=== PATIENT | female | born 1940 | race Caucasian/White ===

== ENCOUNTER 2025-01-30 18:02 | Inpatient (IN) | payer BC ==
[~2025-01-30] VITALS: Ht 152.4 cm; Wt 81.6 kg
--- NOTE | 2025-01-30 18:16 | ELECTROCARDIOGRAPH REPORT ---
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
--- NOTE | 2025-01-30 18:41 | Physician Documentation ---
History of Present Illness Chief Complaint: Abdominal Pain Stated Complaint: UROLOGY Time Seen by MD: 18:07 HPI History is obtained from [facility], record review, patient. This is a very kanwal 85-year-old female who went to the outside facility with a complaint of left flank pain. No obvious trigger or provocation. She has not never experienced this type of pain in the past. It was moderate to severe in its intensity. She did report decreased urine output. Reports fever and chills as well as nausea and vomiting. The particular palliating or aggravating factors. Did not attempt to treat it. She states it medication provided at the outside facility a markedly improved her pain. At the outside facility she was diagnosed with 5 x 6 kidney stone at the left pole infundibulum. Mild dilation of renal pelvis and calyces as well as left ureter at the level of a another 6 mm stone in the distal ureter. Incidental finding of diverticulosis without diverticulitis was noted on that CT. Laboratory studies from the outside facility reviewed. The urine shows too numerous to count white blood cells concerning for pyelonephritis with a infected stone. Metabolic panel from outside facility showed a mild elevation of the creatinine which the RU for this patient at 1.3. Potassium was elevated at 196 concerning for diabetes mellitus. She has a marked leukocytosis of 20.4 with a 90% neutrophilic predominance. Patient was appropriately diagnosed with pyelonephritis with a infected stone and transferred to us for urology consultation. Medication Reconciliation Allergies: Coded Allergies: Penicillins (Verified Allergy, Unknown, 01/30/25) Sulfa (Sulfonamide Antibiotics) (Verified Allergy, Unknown, 01/30/25) diphenhydramine (Verified Allergy, Unknown, HIVES, 01/30/25) lidocaine (Verified Allergy, Unknown, 01/30/25) codeine (Verified Adverse Reaction, Unknown, HEADAHCE, 01/30/25) epinephrine (Verified Adverse Reaction, Unknown, GETS ANXIETY, 01/30/25) Scheduled Atorvastatin Calcium (Atorvastatin Calcium), 1 TAB PO HS, (Reported) Clopidogrel Bisulfate (Clopidogrel), 1 TAB PO DAILY, (Reported) Hydrochlorothiazide (Hydrochlorothiazide), 1 TAB PO DAILY, (Reported) Isosorbide Mononitrate (Isosorbide Mononitrate Er), 0.5 TAB PO DAILY, (Reported) Losartan Potassium (Losartan Potassium), 1 TAB PO HS, (Reported) Metoprolol Succinate (Metoprolol Succinate), 1 TAB PO DAILY, (Reported) Review of Systems ROS 10 point review of systems was performed and unless noted above in HPI is negative for acute process/complaint. Physical Exam Vital Signs: Temperature: 98.1, Source: Oral, Heart Rate: 107, Respiratory Rate: 15, BP: 134/76, Pulse Oximetry: 97, Weight: 81.600 Physical Exam GENERAL: Awake, alert, oriented, GCS 15, no apparent distress, non-toxic appearing, answers questions, follows commands appropriately. Examined in bed 1. Immediately upon arrival HEENT: Atraumatic, normocephalic, pupils equal, extraocular muscles intact, sclerae anicteric, mucus membranes moist, oropharynx is clear, no stridor. NECK: supple, full active range of motion, trachea midline, no thyromegaly, no l ymphadenopathy, no JVD. CARDIOVASCULAR: Tachycardic and regular rate/rhythm, no murmurs/gallops/rubs, Pulses are 2+ in all extremities and symmetric. Capillary refill less than 2 seconds. PULMONARY: Nonlabored, good air movement ,no respiratory distress, speaking in full sentences, clear to auscultation bilaterally, no wheezing, no ronchi, no rales, no accessory muscle use. GASTROINTESTINAL: Soft, non-tender, non-distended, normal active bowel sounds, no organomegaly, no pulsatile masses, no CVA tenderness. NEUROLOGIC: Lucid with normal mental status. Normal facial symmetry. Moves all extremities symmetrically and with purpose. No truncal ataxia. Speech is fluid without evidence of dysarthria or aphasia, no focal deficits appreciated. MUSCULOSKELETAL: There is full range of motion of all extremities. There is no joint pain or joint swelling or joint erythema. There is no muscle pain or tenderness or swelling. EXTREMITIES: warm, well-perfused, no cyanosis, no clubbing, no edema, no acute deformities. Skin: warm, dry, no rashes or lesions, no jaundice, no petechiae orpurpura. No ecchymosis. PSYCHIATRIC: Normal affect, normal insight, normal concentration. Focused exam: [] Sepsis Screening Cardiology Exam: normal peripheral pulses, tachycardia Peripheral Pulses: 2+ radial (R), 2+ radial (L), 2+ dorsalis pedis (R), 2+ dorsalis pedis (L) Extremities: slow capillary refill Skin Color: Normal Progress Results/Orders Results/Orders Vital Signs 01/30/25 18:06 Temp 98.1 Pulse 107 Resp 15 B/P (MAP) 134/76 Pulse Ox 97 Medical Decision Making Findings Facility Status: ED Holds, RME process The plan was discussed with the patient, who demonstrates clear understanding of the plan and is in agreement with the plan unless otherwise noted in the chart. All questions have been answered, all concerns were addressed unless otherwise documented. I was available throughout their ED stay for frequent reassessment and question s. Differential Diagnoses (considered and possible or likely): [Differential for left flank pain obviously includes urinary tract infection, pyelitis, pyelonephritis, infected stone, emphysematous pyelonephritis, kidney stone without infection. Based on patient's presentation and workup at the outside facility infected stone with a pyelonephritis and sepsis are at the top of the differential making a diagnosis] ??Differential Diagnoses (considered and unlikely, not requiring evaluation currently): [Clinically no evidence of acute intra-abdominal process requiring surgical intervention] MDM Data Please see [facility] for the following: Independent Historians and external Records Review. Historian: [Patient] Independent Historians: ?[[facility], record review] Medication Management: [Reviewed medication list] Social History and determinants: [Reviewed] Please see the body of the note for the following: Any independent interpretations of ECG, imaging studies. All vitals signs/haemodynamics, ordered tests were independently reviewed and interpreted by myself. Nursing triage complaint and vitals reviewed, additional nursing notes were reviewed as available and I agree unless otherwise noted or documented in contradiction in the chart Vital Signs: Independently reviewed Labs: Independently interpreted Imaging: Independently interpreted Old Medical Records: Independently reviewed, see [facility] for relevant summary and information Pulse Oximetry: [96%] interpreted as [normal on room air] by me [Film Archivist: Tachycardic Rate, Regular rhythm, no ectopy, sinus tachycardia reviewed and interpreted by me] Additionally notably showing: [Hemodynamically stable but does meet sepsis criteria based laboratory workup at the outside facility.] Tests considered but not ordered include: [Does not require repeat imaging] Social Determinants of Health Impact: Patient was evaluated in [facility] [place] to healthcare due to below par ratio of patient to medical providers. [] Comorbid Conditions Impacting Present Evaluation and Care/Treatment: [None reported by the patient] Management Discussions with other Healthcare Providers: [Hospitalist regarding admission] Treatment and Disposition Medication Management (Given or considered): [Antibiotics has been considerably with verified with the outside facility that she received a dose of ceftriaxone]. See EMR for details Consideration for Hospitalization/Escalation/Deescalation of Care: Admission for observation has been considered, and is necessary for further management of her infected stone and urology consultation ?ED Course:?[No clinical deterioration while in the emergency department] ?Shared decision making:?[] Code status:? Do not intubate, do not resuscitate, selective treatment Please see the full Electronic Medical Record for full details of nursing doc umentation, medications list, other records of complete past medical history and conditions, vital signs, laboratory studies, and any radiologic study interpretations by radiologists. Portions of this note were completed using [employer] dictation software and as a result there may exist minor errors in spelling. I have reviewed elements of past family and social history and agree as included in note. Departure Disposition: ADMITTED INPATIENT Impression: Primary Impression: Acute pyelonephritis Additional Impressions: Left renal stone Sepsis Referrals: NO PRIMARY CARE PROVIDER (PCP) Signature Scribe Signature: No scribe Attestation: This note accurately reflects clinical decisions, work performed by myself, DO KIERSTEN Crane NICHOLAS M DO Jan 30, 2025 18:41
[2025-01-30 19:01] LABS: BASOPHILS % (AUTO) 0.1 % (0-1); EOSINOPHILS % (AUTO) 0 % (0-6); HEMOGLOBIN 14.9 g/dl (12.0-16.0); LYMPHOCYTES # (AUTO) 0.2 X10'3 (1.1-4.8); LYMPHOCYTES % (AUTO) 3.1 % (21-51); MEAN CORPUSCULAR HEMOGLOBIN 29.8 PG (27.0-31.0); MEAN CORPUSCULAR HGB CONC 33.8 g/dL (33.0-36.5); MEAN CORPUSCULAR VOLUME 88.1 FL (78-98); MEAN PLATELET VOLUME 9.1 FL (7.4-10.4); MONOCYTES # (AUTO) 0.1 X10'3 (0-0.9); MONOCYTES % (AUTO) 1.5 % (2-12); NEUTROPHILS # (AUTO) 7.7 X10'3 (1.8-7.7); NEUTROPHILS % (AUTO) 95.3 % (42-75); PLATELET COUNT 192 X10'3 (140-440); RED BLOOD COUNT 4.99 X10'6 (4.20-5.60); RED CELL DISTRIBUTION WIDTH 13.5 % (11.5-14.5)
[2025-01-30 19:28] LABS: ALANINE AMINOTRANSFERASE 15 U/L (12-78); ALBUMIN 3.3 G/DL (3.4-5.0); ALKALINE PHOSPHATASE 100 IU/L (46-116); ANION GAP 14 (8-16); ASPARTATE AMINO TRANSFERASE 20 U/L (10-37); BILIRUBIN,TOTAL 0.9 MG/DL (0.1-1.0); BLOOD UREA NITROGEN 25 MG/DL (7-18); BUN/CREATININE RATIO 14.7 (10.0-20.0); C-REACTIVE PROTEIN 10.13 MG/DL (0.0-0.5); CALCIUM 10.4 MG/DL (8.5-10.1); CHLORIDE 99 MMOL/L (99-107); GLUCOSE 133 MG/DL (70-104); MAGNESIUM 1.6 MG/DL (1.5-2.4); PHOSPHORUS 2.2 MG/DL (2.3-4.5); POTASSIUM 3.1 MMOL/L (3.5-5.1); SODIUM 136 MMOL/L (135-145); TOTAL CARBON DIOXIDE 23.2 MMOL/L (24-32); TOTAL PROTEIN 6.6 G/DL (6.4-8.2); eCRCL 18 ML/MIN; eGFR 29 ML/MIN
[2025-01-30] MEDS ORDERED: acetaminophen 325mg tablet PO PRN (19:45)
[2025-01-30] MEDS ORDERED: ondansetron/PF 4mg/2ml inj IV PRN (19:45)
[2025-01-30] MEDS ORDERED: magnesium hydroxide 30ml (MOM) UD suspension PO PRN (19:45)
[2025-01-30] MEDS ORDERED: mag hydrox/Alum hydrox/simeth 30ml oral suspension PO PRN (19:45)
[2025-01-30] MEDS ORDERED: magnesium sulf-water 4G/100mL 100 ML IV PRN (19:45)
[2025-01-30] MEDS ORDERED: potassium Cl 40MEQ/1/2NS 520ml 520 ML IV PRN (19:45)
[2025-01-30] MEDS ORDERED: magnesium Cl slow-release 64mg tablet PO PRN (19:45)
[2025-01-30] MEDS ORDERED: potassium Cl 20 mEq SR tablet PO PRN (19:45)
[2025-01-30] MEDS ORDERED: morphine 2 MG/ML inj. syringe IV PRN (19:45)
[2025-01-30] MEDS ORDERED: HYDROmorphone inj. 0.5 MG/0.5 ML DISP.SYRIN IV PRN (19:45)
[2025-01-30] MEDS ORDERED: HYDROcodone/acetaminophen 5mg/325mg tablet PO PRN (19:45)
[2025-01-30] MEDS ORDERED: magnesium sulf-water 2g/50mL 50 ML IV PRN (19:45)
[2025-01-30] MEDS: heparin, porcine 5000 units/ml vial SQ SCH (20:00)
[2025-01-30] MEDS: K and/or MAG REPLACEMENT MC SCH (20:00)
[2025-01-30] MEDS: docusate sod 100mg capsule PO SCH (20:00)
[2025-01-30] MEDS: normal saline 1000ml 1,000 ML IV ONE (20:02)
[2025-01-30 20:07] LABS: APTT 26 SECONDS (22-32); INR 1.2 INR; PROTHROMBIN TIME 11.7 SECONDS (9.0-12.0)
--- NOTE | 2025-01-30 20:15 | ELECTROCARDIOGRAPH REPORT ---
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
[2025-01-30] MEDS: CefTRIAXone 2gm/D5W 50ml BAG 50 ML IV SCH (20:50)
[2025-01-30] MEDS: potassium Cl 20 mEq SR tablet PO PRN (20:53)
--- NOTE | 2025-01-30 21:17 | RADIOLOGY REPORT ---
Procedure: CT CT [facility] Study Date and Requested Time: 01/30/2025 08:32 PM History: Word-finding difficulties, history of stroke Comparison: None Dose: CTDI: 61.12 mGy DLP: 1091.84 mGycm Technique: Multiplanar images obtained through the brain without intravenous contrast. Findings: Normal brain volume and formation. Moderate to severe chronic small vessel ischemic changes. No hemorrhages, masses, mass effect, midline shift, herniation or cytotoxic edema following a large v ascular territory. No intra-axial or extra-axial fluid collections. No evidence of hydrocephalus. The basal cisterns are patent. The pituitary gland, sella and parasellar regions are unremarkable. The cerebellar tonsils are in nor mal position. The cerebellum is unremarkable. The orbits and globes are unremarkable. The paranasal sinuses and mastoids are clear. There are no wo rrisome calvarial lesions. Impression: No evidence of acute intracranial abnormality.
--- NOTE | 2025-01-30 21:17 | RADIOLOGY REPORT ---
CHEST RADIOGRAPH Indication: LEFT NEPHROLITHIASIS WITH PYELONEPHRITIS Technique: Single frontal view of the chest was obtained Comparison: None FINDINGS: Lines and Tubes: None Lungs: No focal consolidation. Line sternotomy wires surgical clips are noted consistent with prior h istory of CABG Pleura: No effusion. No pneumothorax. Cardiomediastinal contours: Unremarkable Bones: No acute osseous abnormality. IMPRESSION: Bronchovascular crowding due to low lung volumes. Otherwise, no evidence for acute cardiopulmonary d isease.
[2025-01-30] MEDS: normal saline 1000ml 1,000 ML IV SCH (21:47)
--- NOTE | 2025-01-30 22:48 | HISTORY AND PHYSICAL-Residence ---
History & Physical Providers to CC Resident Creating Document: RUBÉN ASHTON, CHERISE ~ History of Present Illness Primary Medical Doctor: CECILY Reason for Admit\Complaint: Left lumbar pain,nephrolithiasis ,hydroureteronephrosis,pyelonephritis History of Present Illness She 84-year-old female with past medical history of hypertension, hyperlipidemia, CAD with three stents, status post four vessel CABG presented to the ER from [facility] with the chief complaints of left lumbar pain. Endorses left lumbar pain for the past two days and she felt very weak and she could not able to get off the bed. She endorses weakness for the past couple of days and she was using walker before this episode. She do reports fever associated with chills and rigors. She is in mild confusion. She reports facial weakness. She denied decreased urine output, weakness of limbs, deviation of angle of mouth, slurring of speech, seizures, loss of consciousness. Her machining technician is Dr. Wilmer PEGUERO Code status is DNR. Allergies: Coded Allergies: Penicillins (Verified Allergy, Unknown, 01/30/25) Sulfa (Sulfonamide Antibiotics) (Verified Allergy, Unknown, 01/30/25) diphenhydramine (Verified Allergy, Unknown, HIVES, 01/30/25) lidocaine (Verified Allergy, Unknown, 01/30/25) codeine (Verified Adverse Reaction, Unknown, HEADAHCE, 01/30/25) epinephrine (Verified Adverse Reaction, Unknown, GETS ANXIETY, 01/30/25) Past Medical History Past Medical History Hypertension Hyperlipidemia CAD status post three stent Past Surgical History Surgical History Comment PTCA, three stents Four-vessel CABG Family History Family History: FH: alcoholism FATHER FH: hypertension MOTHER Past Social History Social History Comment Smoking cigarettes 2-3 per day She denied drug use, alcohol Smoking: Cigarettes, Less than 1 pack/day Alcohol Use: None Drug Use: None Lives In: Home ROS All Other Systems: Reviewed and Negative ROS Reviewed in full and negative except positive pertinent as in HPI Exam Vitals: Vital Signs Date Time Temp Pulse Resp B/P (MAP) Pulse Ox O2 Delivery O2 Flow Rate FiO2 01/30/25 22:39 100.0 107 14 127/58 (81) 96 0 General: GENERAL: Awake, alert, oriented, GCS 15, no apparent distress, non-toxic appearing, in mild confusion. Examined in bed 1. HEENT: Atraumatic, normocephalic, pupils equal, extraocular muscles intact, sclerae anicteric, mucus membranes moist, oropharynx is clear, no stridor. NECK: supple, full active range of motion, trachea midline, no thyromegaly, no lymphadenopathy, no JVD. CARDIOVASCULAR: Tachycardic and regular rate/rhythm, no murmurs/gallops/rubs, Pulses are 2+ in all extremities and symmetric. Capillary refill less than 2 seconds. PULMONARY: Nonlabored, good air movement ,no respiratory distress, speaking in full sentences, clear to auscultation bilaterally, no wheezing, no ronchi, no rales, no accessory muscle use. GASTROINTESTINAL: Soft, non-tender, non-distended, normal active bowel sounds, no organomegaly, no pulsatile masses, left CVA tenderness. NEUROLOGIC: Lucid with normal mental status. Normal facial symmetry. Moves all extremities symmetrically and with purpose. No truncal ataxia. Speech is fluid without evidence of dysarthria or aphasia, no focal deficits appreciated. MUSCULOSKELETAL: There is full range of motion of all extremities. There is no joint pain or joint swelling or joint erythema. There is no muscle pain or tenderness or swelling. EXTREMITIES: warm, well-perfused, no cyanosis, no clubbing, no edema, no acute deformities. Skin: warm, dry, no rashes or lesions, no jaundice, no petechiae orpurpura. No ecchymosis. PSYCHIATRIC: Normal affect, normal insight, normal concentration. Diagnostic Data Last Recorded Lab Results: 01/30/25 1842 01/31/25 0533 Diagnostic Data: Laboratory Tests Test 01/30/25 18:42 Prothrombin Time 11.7 SECONDS (9.0-12.0) INR International Normalized Ratio 1.2 INR Activated Partial Thromboplast Time 26 SECONDS (22-32) Coagulation Comments Advance Care Planning Advanced Care planning: Add on additional 30 min Additional Plan Pain abdomen and Acute Hematuria likely 2/2 below Left nephrolithiasis with moderate left hydroureteronephrosis & acute pyelonephritis sepsis, POA likely 2/2 UTI & Acute pyelonephritis Tachycardia and tachypnea is noted CBC is okay Lactic acid is elevated as high as 2.3-2.5 Procalcitonin is elevated 4.71 and C-reactive protein is elevated 10. ESR is 10 Coagulation profile, troponin is normal. Urine analysis at [facility] is showing numerous RBCs, WBCs and positive for leukocyte esterase suggestive of hematuria. Hyaline casts and bacteria is present Received 2 L of IV normal saline and on 100 mL per hour normal saline. Received ceftriaxone at [facility]. We are continuing the ceftriaxone Consult urologist in the a.m. RU Hypokalemia Likely secondary to renal tubular stasis Serum creatinine is 1.7 and pCO2 is 23.2 Replacing potassium per protocol On IV normal saline at the rate of 100 mL/hour CAD status post three stents and status post CABG Hypertension hyperlipidemia Ordered lipid panel Patient is on home medications of atorvastatin 40 mg, clopidogrel 75, hydrochlorothiazide 12.5, isosorbide mononitrate 30, losartan 100, metoprolol 25 Start the patient on previous medication except clopidogrel after medication reconsideration On hydralazine 10 mg q.6 H p.r.n. IV EKG does not showed acute ischemic changes .troponins are negative Code status: DNR Diet: NPO DVT prophylaxis: SCDs PT: Ordered Prognosis: Guarded Date of Service: Jan 30, 2025 Billing Provider: VAL BANERJEE MD Common Visit Codes: 59179-PXTVQEX INP/OBS CARE (HIGH) Assessment/Plan Assessment Apixaban evaluated the patient with the help of residents. Discussed the case with them. Reviewed notes by Dr.Suragani Samuels with his assessments and plans. I also reviewed the patient's records. This included labs, radiology, notes from other providers. No additional points at this time. RUBÉN ASHTON, RES Jan 30, 2025 22:48 VAL BANERJEE MD Jan 31, 2025 06:33
[2025-01-30] MEDS: acetaminophen 1,000mg/100ml IV 100 ML IV ONE (23:09)
[2025-01-30 23:30] VITALS: BP 144/50; PULSE 95; RESP 24; TEMP 98.8; O2SAT 95
[2025-01-31] MEDS ORDERED: ISOS30TA84 PO (00:20)
[2025-01-31] MEDS ORDERED: LOSA100T58 PO (00:20)
[2025-01-31] MEDS ORDERED: HYDR12.55 PO (00:20)
[2025-01-31] MEDS ORDERED: ATOR40TA72 PO (00:20)
[2025-01-31] MEDS ORDERED: METO-395 PO (00:20)
[2025-01-31] MEDS ORDERED: CLOP75TA34 PO (00:20)
[2025-01-31] MEDS: normal saline 1000ml 1,000 ML IV ONE (04:12)
[2025-01-31 06:00] VITALS: BP 132/60; PULSE 82; RESP 14; TEMP 97.4; O2SAT 97
[2025-01-31 06:03] LABS: BILIRUBIN,URINE NEGATIVE (Neg); CLARITY,URINE SLIGHTLY CLOUDY (Clear); COLOR,URINE YELLOW (Yellow); GLUCOSE, URINE NEGATIVE (Neg); KETONES,URINE NEGATIVE (Neg); LEUKOCYTE ESTERASE ,URINE NEGATIVE (Neg); NITRITES, URINE NEGATIVE (Neg); OCCULT BLOOD,URINE TRACE-INTACT (Neg); PROTEIN,URINE TRACE mg/dl (Neg); UROBILINOGEN,URINE 0.2 E.U/dL (0.2-1.0)
[2025-01-31 06:05] LABS: UA COLLECTION TYPE NON-SPECIFIED
[2025-01-31 06:26] LABS: ALANINE AMINOTRANSFERASE 14 U/L (12-78); ALBUMIN 2.5 G/DL (3.4-5.0); ALBUMIN/GLOBULIN RATIO 0.7 (1.1-1.5); ALKALINE PHOSPHATASE 78 IU/L (46-116); ANION GAP 12 (8-16); ASPARTATE AMINO TRANSFERASE 10 U/L (10-37); BILIRUBIN,TOTAL 0.7 MG/DL (0.1-1.0); BLOOD UREA NITROGEN 26 MG/DL (7-18); BUN/CREATININE RATIO 14.2 (10.0-20.0); CALCIUM 8.9 MG/DL (8.5-10.1); CHLORIDE 104 MMOL/L (99-107); CHOL/HDL RATIO 2.9 (0.00-4.99); CHOLESTEROL 133 MG/DL (0-200); CREATININE 1.83 MG/DL (0.40-0.90); GLUCOSE 134 MG/DL (70-104); HDL CHOLESTEROL 46 MG/DL (35-60); LDL CHOLESTEROL 64 MG/DL (50-100); MAGNESIUM 1.6 MG/DL (1.5-2.4); POTASSIUM 3.3 MMOL/L (3.5-5.1); SODIUM 138 MMOL/L (135-145); TOTAL CARBON DIOXIDE 21.6 MMOL/L (24-32); TRIGLYCERIDES 68 MG/DL (20-135); eCRCL 17 ML/MIN; eGFR 26 ML/MIN
[2025-01-31 06:33] LABS: BACTERIA,URINE FEW /HPF (Neg); MUCUS STRANDS FEW /LPF (Neg); SQUAMOUS EPITHELIAL CELL,UR MANY /LPF (FEW)
[2025-01-31 06:59] LABS: BASOPHILS % (AUTO) 0.1 % (0-1); EOSINOPHILS % (AUTO) 0 % (0-6); HEMATOCRIT 38.7 % (35.0-45.0); HEMOGLOBIN 12.9 g/dl (12.0-16.0); LYMPHOCYTES # (AUTO) 0.5 X10'3 (1.1-4.8); LYMPHOCYTES % (AUTO) 2.7 % (21-51); MEAN CORPUSCULAR HEMOGLOBIN 29.6 PG (27.0-31.0); MEAN CORPUSCULAR HGB CONC 33.2 g/dL (33.0-36.5); MEAN CORPUSCULAR VOLUME 88.9 FL (78-98); MEAN PLATELET VOLUME 9.8 FL (7.4-10.4); MONOCYTES # (AUTO) 0.5 X10'3 (0-0.9); MONOCYTES % (AUTO) 2.5 % (2-12); NEUTROPHILS % (AUTO) 94.7 % (42-75); PLATELET COUNT 154 X10'3 (140-440); RED BLOOD COUNT 4.36 X10'6 (4.20-5.60); RED CELL DISTRIBUTION WIDTH 13.7 % (11.5-14.5)
[2025-01-31 08:45] LABS: PRO BRAIN NATRIURETIC PEPTIDE 6713 PG/ML (0-450)
[2025-01-31 10:00] VITALS: BP 154/62; PULSE 101; RESP 20; TEMP 98.2; O2SAT 96
[2025-01-31] MEDS: isosorbide mononitrate 30mg tab.SR.24H PO SCH (10:52)
[2025-01-31] MEDS: metoprolol succinate 25mg (24-HOUR) SR. Tablet PO SCH (10:53)
[2025-01-31] MEDS ORDERED: ringers solution, lacted 1,000 ML IV SCH (12:15)
[2025-01-31 13:38] LABS: BILIRUBIN,URINE NEGATIVE (Neg); CLARITY,URINE CLEAR (Clear); COLOR,URINE YELLOW (Yellow); GLUCOSE, URINE NEGATIVE (Neg); KETONES,URINE NEGATIVE (Neg); LEUKOCYTE ESTERASE ,URINE TRACE (Neg); OCCULT BLOOD,URINE SMALL (Neg); PROTEIN,URINE TRACE mg/dl (Neg); UROBILINOGEN,URINE 0.2 E.U/dL (0.2-1.0)
[2025-01-31 13:49] LABS: NITRITES, URINE NEGATIVE (Neg); UA COLLECTION TYPE NON-SPECIFIED
[2025-01-31 13:50] LABS: BACTERIA,URINE 2+ /HPF (Neg); RBC,URINE 0-2 /HPF (0-2); SQUAMOUS EPITHELIAL CELL,UR FEW /LPF (FEW)
--- NOTE | 2025-01-31 13:51 | PROGRESS NOTE- Residence ---
Progress Note - Resident Providers to CC Resident Creating Document: MACARIO KEYES RES ~ Antibiotic Timeout Antibiotic Ordered?: Yes Subjective Patient was seen at the bedside with her . Patient reported that she has been having the pressure-like intense intermittent pain at her left lower back over a week which is progressive over last two days without having any radiation, she took three tablets of baby aspirin to her pain which were associated with chills and rigors with low-grade fever and nausea or vomiting last two days ago. She do have a history of hemorrhoids but did not see any hematuria. Her PCP is Dr. Irwin Blancas at the [facility]. and her mortgage closer is Dr. Billie alfonso at [place], [place]. She did have her history of cardiac three stents placement in 1996, four vessels CABG in 2018 and another heart attack in 2022. She had 3 times of CVAs in the past. Objective Vital Signs Date Time Temp Pulse Resp B/P (MAP) Pulse Ox O2 Delivery O2 Flow Rate FiO2 01/31/25 10:00 98.2 101 20 154/62 (92) 96 Room Air 01/30/25 22:39 0 Result Diagram: 01/31/2553201/31/25532 Vitals were stable at the moment with temp 98.2 F, RI 100/minute, RR 20/minute, BP 154/62 mm Hg, pulse oximetry 96% on room air. On exam, General: Well alert, well oriented, not confused, not agitated, not in acute distress, well cooperated during the physical. HEENT: Conjunctive are pink, sclerae clear, no icterus, pupil is equal in both sides, reactive to light, no ear discharge, no pharyngeal erythema or an edema, mouth and lips are moist. Neck: Supple, no JVD, no lymphadenopathy and thyromegaly. Lungs:Equal air entry on both lungs, no additional sounds Heart: S1-S2 regular sinus rhythm and, regular rate, no gallops, no rubs, no murmurs Abdomen: NO bilateral CVA tenderness, No visible peristalsis, Bowel sounds present on auscultation, soft, nontender, no guarding, no rigidity Extremities: No obvious deformities, no pitting edema bilaterally, capillary refill intact, able to wiggle toes both sides, peripheral pulsations are intact on both sides ASSISTANT PROFESSOR OF EDUCATION: No focal neurological deficits, no motor and sensory weakness in all 4 extremities, could move all 4 extremities Musculoskeletal: No joint swelling, deformities, inflammations, and no scoliosis and back tenderness Skin: No active skin lesions and rashes Coagulation Studies Laboratory Tests Test 01/30/25 18:42 Prothrombin Time 11.7 SECONDS (9.0-12.0) INR International Normalized Ratio 1.2 INR Activated Partial Thromboplast Time 26 SECONDS (22-32) Coagulation Comments Assessment Assessment An 84 years old female who was transferred from [facility] for further management of left kidney stone with moderate left hydronephrosis and acute pyelonephritis complicated to sepsis with PMH of CAD s/p 3 stents, CABG x 4, CVA x 3 times, HTN, HLD. Plan Plan # Infected left renal calculus with 6 mm left distal ureter stone # Mild left hydronephrosis # acute pyelonephritis # sepsis- POA from the above -CT AP was done at the [facility], stable vitals -was given total 2L of IV NS and continue IV maintaince fluid -Continue IV ABx Ceftriaxone - day2 -Consulted with Oncall Urologist Dr Lopez and plan to place a stent tomorrow at 7:30 am -continue monitoring stone passing -pain control -started to continue PO Flomax 0.4 mg HS -repeated LA to f/up until two normal -negative blood culture less than 24 hours to follow up # RU mostly from pre renal tubular stasis # ultralight imbalance-hypokalemia -no baseline to be compared with -Hyaline cast in UA -Daily I's and O's monitoring -Daily CMP -Continue IV NS 75 ml/ hr -replace potassium electrolytes as needed as per protocol # Hx of CVA # Hx of CAD, s/p CABG x 4 and 3 stents # HTN # HLD # Class 2 obesity, BMI 35.1 -non specific elevation of proBNP with 6713, and no active s/s of acute CHF exacerbation -WNL lipid profiles -Med rec was done and reveiwed and continued appropriately -increased PO Losartan to 100 from 50 for better HTN control CODE STATUS: DNR DVT prophylaxis: Sc heparin Analgesia/sedation: Morphine/Dilaudid Lines/tubes: Peripheral IV GI prophylaxis: None Nutrition: Heart healthy Prognosis: Guarded Disposition: stent placement by Dr Lopez tomorrow at 7:30 am and NPO after midnight, Continue medical management including IV fluids, IV antibiotics, follow up with Urology for further management plan, PT eval and DC plan. Resident MD attestation: Patient was seen, examined and discussed with attending MD, Dr. Anastacio KEYES MD Internal Medicine Resident, PGY2 [facility] Date of Service: Jan 31, 2025 Billing Provider: MIKEL DOZIER MD, TIN, RES Jan 31, 2025 13:51
[2025-01-31 18:00] VITALS: BP 131/61; PULSE 91; RESP 18; TEMP 99.7; O2SAT 96
--- NOTE | 2025-01-31 19:18 | CONSULTATION ---
DATE OF CONSULTATION: 01/31/2025 DICTATING PHYSICIAN: Wing Lopez MD HISTORY OF PRESENT ILLNESS: An 84-year-old female who was admitted and transferred from [facility] with a diagnosis of left distal ureteral stone with pyelonephritis. She has no prior history of stones. She had fever and chills, as well as nausea and vomiting and presented herself to [facility]. CT scan was performed by report, which is not available to my review, but is revealing for a 6 mm calculus in the left distal ureter, causing left hydroureteronephrosis as well as a 6 mm calculus in the lower pole infundibulum on the left. No other stones in the urinary tract. I was asked to consult for an infected distal ureteral stone. PAST SURGICAL HISTORY: A 4-vessel CABG and 3 cardiac stents. PAST MEDICAL HISTORY: Coronary artery disease, elevated cholesterol, hypertension, and nephrolithiasis. ALLERGIES: PENICILLIN, SULFA, DIPHENHYDRAMINE, LIDOCAINE, CODEINE, EPINEPHRINE ____. MEDICATIONS: Metoprolol, losartan, isosorbide, hydrochlorothiazide, Plavix, and atorvastatin. SOCIAL HISTORY: Noncontributory. REVIEW OF SYSTEMS: 10-point review of systems negative except for HPI. PHYSICAL EXAMINATION: VITAL SIGNS: Blood pressure is 134/76, respirations 15, heart rate 107, temperature 98.1. GENERAL: She is in minimal distress, but has been medicated by the time I see her. LABORATORY DATA: White count is 19,000. BUN and creatinine are 26 and 1.83. Her lactic acid was initially 2.5 and that has not been rechecked. IMAGING STUDIES: CT scan is as per HPI. ASSESSMENT: Pain, leukocytosis, and pyuria secondary to left distal ureteral calculus with presumed infection behind the stone. Decompression indicated. PLAN: N.p.o. after midnight. Surgical decompression to consist of cystoscopy, left retrograde pyelogram, and left ureteral stent placement. Informed consent obtained. Risks, alternatives, benefits, and complications discussed. The patient understands and wishes to proceed. She further understands that her stones will need to be taken care of at a future date following resolution of her pyelonephritis. Wing Lopez MD TID: [id number] RECEIPT: [id number] MARLENY/KAYLYN/GARY
[2025-01-31 20:00] VITALS: RESP 16; O2SAT 99
[2025-01-31] MEDS: tamsulosin 0.4mg capsule PO SCH (21:17)
[2025-01-31] MEDS: atorvastatin 20mg tablet PO SCH (21:18)
[2025-01-31] MEDS: losartan 50mg tablet PO SCH (21:18)
[2025-01-31 22:00] VITALS: BP 147/79; PULSE 97; RESP 16; TEMP 98.4; O2SAT 94
[2025-02-01] VITALS (22 sets, daily range): BP systolic 117–180; BP diastolic 46–95; PULSE 62–93; RESP 14–18; TEMP 96.1–98.6; O2SAT 89–98
[2025-02-01 05:48] LABS: BASOPHILS % (AUTO) 0.1 % (0-1); EOSINOPHILS # (AUTO) 0.2 X10'3 (0-0.9); HEMATOCRIT 36.2 % (35.0-45.0); HEMOGLOBIN 12.4 g/dl (12.0-16.0); LYMPHOCYTES # (AUTO) 0.5 X10'3 (1.1-4.8); LYMPHOCYTES % (AUTO) 3.5 % (21-51); MEAN CORPUSCULAR HEMOGLOBIN 30.4 PG (27.0-31.0); MEAN CORPUSCULAR HGB CONC 34.3 g/dL (33.0-36.5); MEAN CORPUSCULAR VOLUME 88.7 FL (78-98); MEAN PLATELET VOLUME 9.9 FL (7.4-10.4); MONOCYTES # (AUTO) 0.8 X10'3 (0-0.9); NEUTROPHILS # (AUTO) 13.8 X10'3 (1.8-7.7); NEUTROPHILS % (AUTO) 90.4 % (42-75); PLATELET COUNT 118 X10'3 (140-440); RED BLOOD COUNT 4.08 X10'6 (4.20-5.60); WHITE BLOOD COUNT 15.3 X10'3 (4.5-11.0)
[2025-02-01 05:56] LABS: ALANINE AMINOTRANSFERASE 12 U/L (12-78); ALBUMIN 2.1 G/DL (3.4-5.0); ALBUMIN/GLOBULIN RATIO 0.7 (1.1-1.5); ALKALINE PHOSPHATASE 78 IU/L (46-116); ANION GAP 10 (8-16); ASPARTATE AMINO TRANSFERASE 14 U/L (10-37); BILIRUBIN,TOTAL 0.3 MG/DL (0.1-1.0); BLOOD UREA NITROGEN 36 MG/DL (7-18); BUN/CREATININE RATIO 23.5 (10.0-20.0); CALCIUM 9.1 MG/DL (8.5-10.1); CHLORIDE 109 MMOL/L (99-107); CREATININE 1.53 MG/DL (0.40-0.90); GLUCOSE 107 MG/DL (70-104); MAGNESIUM 1.7 MG/DL (1.5-2.4); POTASSIUM 3.5 MMOL/L (3.5-5.1); SODIUM 140 MMOL/L (135-145); TOTAL CARBON DIOXIDE 21.2 MMOL/L (24-32); eCRCL 20 ML/MIN; eGFR 32 ML/MIN
[2025-02-01] MEDS ORDERED: iohexol 300 MG/1 ML 50ml polymer ONE (06:44)
[2025-02-01] MEDS ORDERED: labetalol 20mg/4ml (5mg/ml) syringe IV PRN (07:15)
[2025-02-01] MEDS ORDERED: ondansetron/PF 4mg/2ml inj IV PRN (07:15)
[2025-02-01] MEDS ORDERED: morphine 4 MG/ML inj SYRINge IV PRN (07:15)
[2025-02-01] MEDS ORDERED: hydrALAZINE 20mg/ml inj. IV PRN (07:15)
[2025-02-01] MEDS ORDERED: proCHLORperazine 10 MG/2 ml inj IV PRN (07:15)
[2025-02-01] MEDS ORDERED: acetaminophen 1,000mg/100ml IV 100 ML IV PRN (07:15)
[2025-02-01] MEDS ORDERED: HYDROmorphone/PF 0.2 MG/ML SYRINGE IV PRN ×2 (07:15)
[2025-02-01] MEDS ORDERED: morphine 2 MG/ML inj. syringe IV PRN (07:15)
[2025-02-01] MEDS ORDERED: sevoflurane 250ml liquid IH ONE (07:30)
[2025-02-01] MEDS ORDERED: fentaNYL/PF 50MCG/1 ML 2ML syringe ONE (07:50)
[2025-02-01] MEDS ORDERED: midazolam 1 mg/ML 2ml injection ONE (08:04)
[2025-02-01] MEDS ORDERED: dexamethasone sod phosphate 4mg/ml inj. ONE (08:04)
[2025-02-01] MEDS ORDERED: ondansetron/PF 4mg/2ml inj ONE (08:04)
[2025-02-01] MEDS ORDERED: propofol inj 20 ML IV ONE (08:04)
--- NOTE | 2025-02-01 08:23 | POSTOPERATIVE RECORDS ---
Postoperative Records Providers to CC ~ Date of Procedure: Feb 01, 2025 Problems: (1) Obstructive pyelonephritis (2) Left ureteral stone Post-Operative Diagnosis SAME as PRE-Op Procedure Performed cystoscopy, left RPG and stone manipulation and stent placement, right RPG Surgeon: Jessica Schaeffer none Anesthesiologist: Heidi Mathews Type of Anesthesia: General Findings: dictated Complications none Prosthetics\Implants used: stent Estimated Blood Loss: none Specimen Removed: none Description of Procedure: dictated JEROME AVILES MD Feb 01, 2025 08:23
--- NOTE | 2025-02-01 08:57 | OPERATIVE REPORT ---
DATE OF SURGERY: 02/01/2025 DICTATING PHYSICIAN: Wing Lopez MD PREOPERATIVE DIAGNOSES: Left ureteral stone and renal stone with obstructing pyelonephritis. POSTOPERATIVE DIAGNOSES: Left ureteral stone and renal stone with obstructing pyelonephritis. OPERATIONS PERFORMED: * Cystoscopy. * Left retrograde pyelogram and stone manipulation. * Left ureteral stent placement. * Right retrograde pyelogram. SURGEON: Wing Lopez MD. ANESTHESIOLOGIST: Dr. Mathews. ANESTHESIA: General INDICATIONS: An 84-year-old female admitted in transfer from [facility] with a report of a left distal ureteral stone with pyelonephritis. She also had significant leukocytosis with a white count of 19,000 and dirty colored urine. Her CT scan was not available to my review, but was revealing for a 6 mm calculus in the left distal ureter as well as a 6 mm calculus in the left kidney. She was recommended to undergo decompression for presumed obstructing pyelonephritis. DESCRIPTION OF PROCEDURE: After obtaining informed consent, the patient was taken to the operating room and general anesthesia was induced. I then placed the patient into dorsal lithotomy position. The genitals were prepped and draped in the usual fashion. The cystoscope was placed into the bladder and surveillance was performed. There was particulate matter in the bladder as well as very cloudy urine. There was a 1-cm whitish structure, which appeared to be mucusy that was in the dependent portion of the bladder, which was irrigated out and was either partial stone or pus. Retrograde pyelogram was then performed on the left and visualization was borderline. The patient had moderate hydronephrosis, however, and in the process of injecting contrast, there was a perception that the stone moved approximately 2 cm up into the proximal ureter. It was elected to leave a stent. A 6-Divehi x 26 cm double-J stent was advanced following placement of a guidewire coiled into the pyelogram. Fluoroscopy revealed good ____ in the kidney and bladder seen fluoroscopically and cystoscopically respectively. Pressure on the kidney revealed transport of pussy urine compatible with relief of obstruction of an infected system and confirmed that we were on the correct side as well. To be sure, a right retrograde pyelogram was performed, which was normal to my view. The bladder was drained. The procedure was completed. The patient awakened from general anesthesia having tolerated the procedure well. The patient will be scheduled for elective retrieval of her stones following resolution of her infected stone. COMPLICATIONS: None. Wing Lopez MD TID: [id number] RECEIPT: [id number] MARLENY/ADILSON
--- NOTE | 2025-02-01 15:09 | PROGRESS NOTE- Residence ---
Progress Note - Resident Providers to CC Resident Creating Document: MACARIO KEYES RES ~ Antibiotic Timeout Antibiotic Ordered?: Yes Subjective pt was lying on her bed comfortable at the immediate post op condition. She was told to have PT today and will prep for discharge tomorrow if PT cleared her. She is not having serious pain at that moment. She just had Stent placement by Dr Lopez. Objective Vital Signs Date Time Temp Pulse Resp B/P (MAP) Pulse Ox O2 Delivery O2 Flow Rate FiO2 02/01/25 10:35 Room Air 0.0 02/01/25 10:15 97.5 80 16 146/62 (90) 91 Result Diagram: 02/01/25 0506 02/01/25 0506 Vitals were stable. On exam, General: Well alert, well oriented, not confused, not agitated, not in acute distress, well cooperated during the physical. HEENT: Conjunctive are pink, sclerae clear, no icterus, pupil is equal in both sides, reactive to light, no ear discharge, no pharyngeal erythema or an edema, mouth and lips are moist. Neck: Supple, no JVD, no lymphadenopathy and thyromegaly. 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, no motor and sensory weakness in all 4 extremities, could move all 4 extremities Musculoskeletal: No joint swelling, deformities, inflammations, and no scoliosis and back tenderness Skin: No active skin lesions and rashes Coagulation Studies Laboratory Tests Test 01/30/25 18:42 Prothrombin Time 11.7 SECONDS (9.0-12.0) INR International Normalized Ratio 1.2 INR Activated Partial Thromboplast Time 26 SECONDS (22-32) Coagulation Comments Assessment Assessment An 84 years old female who was transferred from [facility] for further management of left kidney stone with moderate left hydronephrosis and acute pyelonephritis complicated to sepsis with PMH of CAD s/p 3 stents, CABG x 4, CVA x 3 times, HTN, HLD. Plan Plan # S/p left ureteral stent placement for Infected left renal calculus with 6 mm left distal ureter stone # Mild left hydronephrosis # acute pyelonephritis # sepsis- POA from the above - resolved 02/01/2025: Dr. Swanson performed the cystoscopy, left retrograde pyelogram, left urethral stent placement today -vitals were stable, without complications -monitor I's and O's, possible hematuria -pain control -neutrophilic leukocytosis trending down on continuing IV antibiotics ceftriaxone day three 01/31/2025:-CT AP was done at the [facility], stable vitals -was given total 2L of IV NS and continue IV maintenance fluid -Continue IV ABx Ceftriaxone - day2 -Consulted with Oncall Urologist Dr Lopez and plan to place a stent tomorrow at 7:30 am -continue monitoring stone passing -pain control -started to continue PO Flomax 0.4 mg HS -repeated LA to f/up until two normal -negative blood culture less than 24 hours to follow up # RU mostly from pre renal tubular stasis # electrolytes imbalance-hypokalemia 02/01/2025: Gradually trending down to her baseline on admission, continue monitoring -continue IV fluid until she can resume her oral 01/31/2025:-no baseline to be compared with -Hyaline cast in UA -Daily I's and O's monitoring -Daily CMP -Continue IV NS 75 ml/ hr -replace potassium electrolytes as needed as per protocol # Hx of CVA # Hx of CAD, s/p CABG x 4 and 3 stents # HTN # HLD # Class 2 obesity, BMI 35.1 -non specific elevation of proBNP with 6713, and no active s/s of acute CHF exacerbation -WNL lipid profiles -Med rec was done and reveiwed and continued appropriately -increased PO Losartan to 100 from 50 for better HTN control CODE STATUS: DNR DVT prophylaxis: Sc heparin Analgesia/sedation: Morphine/Dilaudid Lines/tubes: Peripheral IV GI prophylaxis: None Nutrition: Heart healthy Prognosis: Guarded Disposition: Postop care, follow up with Dr. Swanson for further management plan including out patient follow up plan, Continue medical management including IV fluids, IV antibiotics, PT eval and DC tomorrow. Resident MD attestation: Patient was seen, examined and discussed with attending MD, Dr. Anastacio KEYES MD Internal Medicine Resident, PGY2 [facility] Date of Service: Feb 01, 2025 Billing Provider: MIKEL DOZIER MD, TIN, RES Feb 01, 2025 15:09
[2025-02-01] MEDS: ringers solution, lacted 1,000 ML IV SCH (20:11)
[2025-02-02 05:28] LABS: BASOPHILS % (AUTO) 0.1 % (0-1); EOSINOPHILS % (AUTO) 0 % (0-6); HEMOGLOBIN 12.5 g/dl (12.0-16.0); LYMPHOCYTES # (AUTO) 0.6 X10'3 (1.1-4.8); LYMPHOCYTES % (AUTO) 4.7 % (21-51); MEAN CORPUSCULAR HEMOGLOBIN 29.4 PG (27.0-31.0); MEAN CORPUSCULAR HGB CONC 33.7 g/dL (33.0-36.5); MEAN CORPUSCULAR VOLUME 87.4 FL (78-98); MEAN PLATELET VOLUME 9.9 FL (7.4-10.4); MONOCYTES # (AUTO) 0.8 X10'3 (0-0.9); MONOCYTES % (AUTO) 6.3 % (2-12); NEUTROPHILS # (AUTO) 10.8 X10'3 (1.8-7.7); NEUTROPHILS % (AUTO) 88.9 % (42-75); PLATELET COUNT 127 X10'3 (140-440); RED BLOOD COUNT 4.24 X10'6 (4.20-5.60); RED CELL DISTRIBUTION WIDTH 14.2 % (11.5-14.5); WHITE BLOOD COUNT 12.2 X10'3 (4.5-11.0)
[2025-02-02 05:57] LABS: ALANINE AMINOTRANSFERASE 15 U/L (12-78); ALBUMIN 2.1 G/DL (3.4-5.0); ALBUMIN/GLOBULIN RATIO 0.8 (1.1-1.5); ALKALINE PHOSPHATASE 80 IU/L (46-116); ANION GAP 13 (8-16); ASPARTATE AMINO TRANSFERASE 5 U/L (10-37); BILIRUBIN,TOTAL 0.2 MG/DL (0.1-1.0); BLOOD UREA NITROGEN 45 MG/DL (7-18); BUN/CREATININE RATIO 41.3 (10.0-20.0); CALCIUM 8.9 MG/DL (8.5-10.1); CHLORIDE 109 MMOL/L (99-107); CREATININE 1.09 MG/DL (0.40-0.90); GLUCOSE 164 MG/DL (70-104); MAGNESIUM 1.8 MG/DL (1.5-2.4); POTASSIUM 3.8 MMOL/L (3.5-5.1); SODIUM 141 MMOL/L (135-145); TOTAL CARBON DIOXIDE 19.4 MMOL/L (24-32); TOTAL PROTEIN 4.6 G/DL (6.4-8.2); eCRCL 29 ML/MIN; eGFR 48 ML/MIN
[2025-02-02 06:00] VITALS: BP 151/71; PULSE 63; RESP 13; TEMP 98; O2SAT 95
[2025-02-02 07:15] VITALS: BP 154/52; PULSE 83
[2025-02-02 09:41] VITALS: BP 136/64; PULSE 74; RESP 16; TEMP 97.8; O2SAT 94
[2025-02-02] MEDS: amLODIPine 5mg tablet PO SCH (09:42)
[2025-02-02] MEDS ORDERED: LACT1CAP26 PO (12:43)
[2025-02-02] MEDS ORDERED: CEFD300C3 PO (12:43)
--- NOTE | 2025-02-02 12:45 | DISCHARGE SUMMARY-Residence ---
Discharge Summary Providers to CC Resident Creating Document: MACARIO KEYES, RES ~ Discharge Summary Admission Diagnosis: LEFT NEPHROLITHIASIS W/ACUTE PYELONEPHRITIS Hospital Course DATE OF ADMISSION: 01/30/2025 DATE OF DISCHARGE: 02/02/2025 Discharge Diagnosis\Comment: * this is a discharge summary for 02/03/2025* # S/p left ureteral stent placement for Infected left renal calculus with 6 mm left distal ureter stone -POD 1 # Mild left hydronephrosis # acute pyelonephritis # sepsis- POA from the above - resolved # RU mostly from pre renal tubular stasis # electrolytes imbalance-hypokalemia # Hx of CVA # Hx of CAD, s/p CABG x 4 and 3 stents # HTN # HLD # Class 2 obesity, BMI 35.1 Operations\Procedures: cystoscopy, left retrograde pyelogram, left urethral stent placement Consultants: Dr Lopez, Urology Complications: None Condition on DC: Stable New Medications: Cefdinir* (Cefdinir*) 300 Mg Capsule 1 CAP PO Q12H for 3 Days, #6 CAP Lactobacillus Rhamnosus (Culturelle) 10 Billion Cell Capsule 1 CAP PO DAILY for 14 Days, #14 CAP 0 Refills Continued Medications: Atorvastatin Calcium (Atorvastatin Calcium) 40 Mg Tablet 1 TAB PO HS Clopidogrel Bisulfate (Clopidogrel) 75 Mg Tablet 1 TAB PO DAILY Hydrochlorothiazide (Hydrochlorothiazide) 12.5 Mg Tablet 1 TAB PO DAILY Isosorbide Mononitrate (Isosorbide Mononitrate Er) 30 Mg Tab.er.24h 0.5 TAB PO DAILY Losartan Potassium (Losartan Potassium) 100 Mg Tablet 1 TAB PO HS Metoprolol Succinate (Metoprolol Succinate) 25 Mg Tab.sr.24h 1 TAB PO DAILY Discharge Summary: An 84 years old female who was transferred from [facility] for further management of left kidney stone with moderate left hydronephrosis and acute pyelonephritis complicated to sepsis with PMH of CAD s/p 3 stents, CABG x 4, CVA x 3 times, HTN, HLD. Hospital course: Patient was admitted to the hospital for further management of her sepsis from renal stone and pyelonephritis. CT AP was done at the [facility] stated that a 6 mm calculus in the left distal ureter, causing left hydroureteronephrosis as well as a 6 mm calculus in the lower pole infundibulum of the left kidney complicated with the acute pyelonephritis. She was having neutrophilic leukocytosis and lactic acidosis on admission. No other stones in the urinary tract. She was given total 2L of IV NS and continue IV maintenance fluid, and we continued IV ceftriaxone for 4 courses. PO Flomax was initiated. Consulted with Oncall Urologist Dr Lopez who performed the cystoscopy, left retrograde pyelogram with pending radiology reading, left urethral stent placement without having any complications in the postop. All of her home medications were reconciled and reviewed, continued appropriately, however, her p.o. losartan was increased to 100 from 50 daily for the better blood pressure control. DVT prophylaxis was achieved with the sc heparin 5000 units b.i.d., IV morphine/Dilaudid was given for the pain control. All of her labs were reviewed WNL with WBC 12.2, hemoglobin 12.5, hematocrit 37, platelet count 127, sodium 141, potassium 3.8, chloride 109, BUN 45, creatinine 1.09, RBS 164. All of her questions and concerns were addressed and answered with the best knowledge of our team before she was discharged home. All of her vitals were stable at the moment with temp 97.8 F, ME 74/minute, RR 16/minute, BP 136/64 mm Hg, pulse oximetry 94% on room air. On exam, General: Well alert, well oriented, not confused, not agitated, not in acute distress, well cooperated during the physical. HEENT: Conjunctive are pink, sclerae clear, no icterus, pupil is equal in both sides, reactive to light, no ear discharge, no pharyngeal erythema or an edema, mouth and lips are moist. Neck: Supple, no JVD, no lymphadenopathy and thyromegaly. 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 -follow up with PCP, Nephrology Dr. Lopez in 1-2 weeks after discharge for further management including CBC CMP recheck and further urology stand point management etc -please complete another three days of p.o. antibiotics to prevent unnecessary antibiotic resistance along with p.o. cultural -optimal oral hydration at least 1.5-2L/day to prevent future Kidney stones -less salt, optimal amount of red meat, and vitamin C along with the vegetable diets were highly recommended. Avoid taking much soda soft drinks. Resident MD attestation: Patient was seen, examined and discussed with attending MD, Dr. Anastacio KEYES MD Internal Medicine Resident, PGY2 [facility] *Problems/Diagnosis: (1) Acute pyelonephritis Status: Resolved (2) Sepsis Status: Resolved (3) Left renal stone Status: Chronic Total Time Spent on D/C: > 30 Minutes Date of Service: Feb 02, 2025 Billing Provider: MIKEL DOZIER MD, TIN, RES Feb 02, 2025 12:45
[2025-02-02 18:00] VITALS: BP 119/68; PULSE 76; RESP 18; TEMP 98.4; O2SAT 96
--- NOTE | 2025-02-02 19:49 | PROGRESS NOTE- Residence ---
Progress Note - Resident Providers to CC Resident Creating Document: MACARIO KEYES RES ~ Antibiotic Timeout Antibiotic Ordered?: Yes Subjective As per CM note, patient lives in [place] and her cannot pick her up until tomorrow. Spoke with CFO Sridhar regarding possible cab ride home, he has declined and patient will stay until tomorrow when her can pick her up. Patient will be discharged early in the morning tomorrow Objective Vital Signs Date Time Temp Pulse Resp B/P (MAP) Pulse Ox O2 Delivery O2 Flow Rate FiO2 02/02/25 18:00 98.4 76 18 119/68 (85) 96 Room Air 02/02/25 08:00 0.0 Result Diagram: 02/02/25 0450 02/02/25 0450 Vitals were stable. On exam, General: Well alert, well oriented, not confused, not agitated, not in acute distress, well cooperated during the physical. HEENT: Conjunctive are pink, sclerae clear, no icterus, pupil is equal in both sides, reactive to light, no ear discharge, no pharyngeal erythema or an edema, mouth and lips are moist. Neck: Supple, no JVD, no lymphadenopathy and thyromegaly. 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, no motor and sensory weakness in all 4 extremities, could move all 4 extremities Musculoskeletal: No joint swelling, deformities, inflammations, and no scoliosis and back tenderness Skin: No active skin lesions and rashes Coagulation Studies Laboratory Tests Test 01/30/25 18:42 Prothrombin Time 11.7 SECONDS (9.0-12.0) INR International Normalized Ratio 1.2 INR Activated Partial Thromboplast Time 26 SECONDS (22-32) Coagulation Comments Assessment Assessment An 84 years old female who was transferred from [facility] for further management of left kidney stone with moderate left hydronephrosis and acute pyelonephritis complicated to sepsis with PMH of CAD s/p 3 stents, CABG x 4, CVA x 3 times, HTN, HLD. Plan Plan # S/p left ureteral stent placement for Infected left renal calculus with 6 mm left distal ureter stone # Mild left hydronephrosis # acute pyelonephritis # sepsis- POA from the above - resolved 02/02/2025: Patient will be discharged tomorrow, follow up with Dr. Lopez -continue IV antibiotics day for 02/01/2025: Dr. Swanson performed the cystoscopy, left retrograde pyelogram, left urethral stent placement today -vitals were stable, without complications -monitor I's and O's, possible hematuria -pain control -neutrophilic leukocytosis trending down on continuing IV antibiotics ceftriaxone day three 01/31/2025:-CT AP was done at the [facility], stable vitals -was given total 2L of IV NS and continue IV maintenance fluid -Continue IV ABx Ceftriaxone - day2 -Consulted with Oncall Urologist Dr Lopez and plan to place a stent tomorrow at 7:30 am -continue monitoring stone passing -pain control -started to continue PO Flomax 0.4 mg HS -repeated LA to f/up until two normal -negative blood culture less than 24 hours to follow up # RU mostly from pre renal tubular stasis # electrolytes imbalance-hypokalemia 02/02/2025: Creatinine 1.09, gradually trending down electrolytes are within normal 02/01/2025: Gradually trending down to her baseline on admission, continue monitoring -continue IV fluid until she can resume her oral 01/31/2025:-no baseline to be compared with -Hyaline cast in UA -Daily I's and O's monitoring -Daily CMP -Continue IV NS 75 ml/ hr -replace potassium electrolytes as needed as per protocol # Hx of CVA # Hx of CAD, s/p CABG x 4 and 3 stents # HTN # HLD # Class 2 obesity, BMI 35.1 -non specific elevation of proBNP with 6713, and no active s/s of acute CHF exacerbation -WNL lipid profiles -Med rec was done and reveiwed and continued appropriately -increased PO Losartan to 100 from 50 for better HTN control CODE STATUS: DNR DVT prophylaxis: Sc heparin Analgesia/sedation: Morphine/Dilaudid Lines/tubes: Peripheral IV GI prophylaxis: None Nutrition: Heart healthy Prognosis: Guarded Disposition: Discharge tomorrow home, Postop care, follow up with Dr. Lopez for further management plan including out patient follow up plan, Continue medical management including IV fluids, IV antibiotics, PT eval and DC tomorrow. Resident MD attestation: Patient was seen, examined and discussed with attending MD, Dr. Anastacio KEYES MD Internal Medicine Resident, PGY2 [facility] Date of Service: Feb 02, 2025 Billing Provider: MIKEL DOZIER MD, TIN, RES Feb 02, 2025 19:49
[2025-02-02 22:00] VITALS: BP 170/70; PULSE 71; RESP 17; TEMP 97.5; O2SAT 94
[2025-02-03 05:00] VITALS: BP 188/79; PULSE 74; RESP 18; TEMP 98.3; O2SAT 93
[2025-02-03 06:58] LABS: BASOPHILS % (AUTO) 0.2 % (0-1); EOSINOPHILS % (AUTO) 0.2 % (0-6); HEMATOCRIT 37.2 % (35.0-45.0); HEMOGLOBIN 12.6 g/dl (12.0-16.0); LYMPHOCYTES # (AUTO) 1.1 X10'3 (1.1-4.8); LYMPHOCYTES % (AUTO) 9.4 % (21-51); MEAN CORPUSCULAR HEMOGLOBIN 29.6 PG (27.0-31.0); MEAN CORPUSCULAR HGB CONC 33.7 g/dL (33.0-36.5); MEAN CORPUSCULAR VOLUME 87.6 FL (78-98); MEAN PLATELET VOLUME 9.9 FL (7.4-10.4); MONOCYTES # (AUTO) 1.2 X10'3 (0-0.9); MONOCYTES % (AUTO) 11.1 % (2-12); NEUTROPHILS # (AUTO) 8.9 X10'3 (1.8-7.7); NEUTROPHILS % (AUTO) 79.1 % (42-75); PLATELET COUNT 126 X10'3 (140-440); RED BLOOD COUNT 4.25 X10'6 (4.20-5.60); RED CELL DISTRIBUTION WIDTH 13.9 % (11.5-14.5); WHITE BLOOD COUNT 11.2 X10'3 (4.5-11.0)
[2025-02-03 07:17] LABS: ALANINE AMINOTRANSFERASE 25 U/L (12-78); ALBUMIN/GLOBULIN RATIO 0.7 (1.1-1.5); ALKALINE PHOSPHATASE 86 IU/L (46-116); ANION GAP 9 (8-16); ASPARTATE AMINO TRANSFERASE 19 U/L (10-37); BILIRUBIN,TOTAL 0.3 MG/DL (0.1-1.0); BLOOD UREA NITROGEN 44 MG/DL (7-18); CALCIUM 8.7 MG/DL (8.5-10.1); CHLORIDE 112 MMOL/L (99-107); CREATININE 1.19 MG/DL (0.40-0.90); GLUCOSE 108 MG/DL (70-104); MAGNESIUM 1.6 MG/DL (1.5-2.4); POTASSIUM 3.2 MMOL/L (3.5-5.1); SODIUM 142 MMOL/L (135-145); TOTAL PROTEIN 4.9 G/DL (6.4-8.2); eCRCL 26 ML/MIN; eGFR 43 ML/MIN
[2025-02-03 10:00] VITALS: BP 148/65; PULSE 78; RESP 20; TEMP 98.2; O2SAT 94
== END 2025-02-03 11:15 | disposition home or self-care (01) | DRG 853 ==
LOC: ER 18:03 → ED HOLD 19:47 → EDBEDREQ 21:30 → ORTHO 4S 23:22
PROVIDERS: ADMIT Internal Medicine Critical Care Medicine; ATTEND Family Medicine
PROC: 0T778DZ Dilation of Left Ureter with Intraluminal Device, Via Natural or Artificial Opening Endoscopic (ICD-10-PCS; 2025-02-01)
PROC: BT141ZZ Fluoroscopy of Kidneys, Ureters and Bladder using Low Osmolar Contrast (ICD-10-PCS; principal; 2025-02-01 07:38)
DX: A41.9 Sepsis, unspecified organism (principal); N17.0 Acute kidney failure with tubular necrosis; N13.6 Pyonephrosis; Z66 Do not resuscitate; E87.6 Hypokalemia; E66.812 Obesity, class 2; E78.00 Pure hypercholesterolemia, unspecified; I10 Essential (primary) hypertension; I25.10 Atherosclerotic heart disease of native coronary artery without angina pectoris; Z88.0 Allergy status to penicillin; Z88.2 Allergy status to sulfonamides; Z88.5 Allergy status to narcotic agent; Z79.899 Other long term (current) drug therapy; Z95.1 Presence of aortocoronary bypass graft; Z95.5 Presence of coronary angioplasty implant and graft; Z86.73 Personal history of transient ischemic attack (TIA), and cerebral infarction without residual deficits; Z68.35 Body mass index [BMI] 35.0-35.9, adult
CPT/HCPCS: 96361; 96374; 99285; Z7506; 36415; 70450; 71045; 74420; 76000; 80053; 80061; 81001; 82948; 83036; 83605; 83735; 83880; 84100; 84145; 84484; 85025; 85610; 85651; 85730; 86140; 86885; 86900; 86901; 87040; 87081; 87088; 93005; 97116; 97161; 97530; A4618; C1758; C1769; C2617; G0378; J0131; J0696; J1100; J1644; J2250; J2405; J2704; J3010; J7030; Q9967